=== PATIENT | female | born 1955 | race Caucasian/White ===

== ENCOUNTER → 2023-08-24 15:51 | Outpatient (RCR) | payer BC, MEDICARE, SELFPAY | END | disposition home or self-care (01) | LOC: HO.OT 11-06 14:51 | PROVIDERS: PCP Family Medicine; Visit Provider Surgery Surgery of the Hand | DX: Z98.890 Other specified postprocedural states (principal) | CPT/HCPCS: 97033; 97035; 97110; 97140; 97165; 97530 ==